=== PATIENT | female | born 1935 | race Caucasian/White ===

== ENCOUNTER → 2016-06-19 | Outpatient (CLI) | payer MEDICARE ==
[~2016-06-19] MED LIST: AMLODIPINE BESYL5 MG PO; ASPIRIN81 M2 PO; B6100 MG PO; METOPROLOL TAR25 MG PO; METOPROLOL TART25 MG PO; QUINAPRIL-HCTZ1 TA1 PO; SIMVASTATIN40 MG PO; [UNRECOGNIZED DRUG - OTHER] PO
--- NOTE | ~2016-06-19 | US37 ---
[facility] A Service of [facility] RADIOLOGY TEXT RESULTS PATIENT: COSTA WANG LOCATION: CNIV : 37 UNIT #: [id number] AGE: [address]: Amy Rosas SEX: F ORDER DR: [id number] [facility] [address] [place], [place] [address] [id number] O MR#: [id number] Acc #: [id number] NAME: COSTA WANG : 1935 SEX: F STUDY DATE/TIME: 06/19/2016 12:07 UNIT: CNIV ROOM: STUDY DESCRIPTION: US Carotid W/Doppler Bilateral Attending Physician: Amy Rosas A.P.R.N. Referring Physician: Amy Rosas A.P.R.N. Ordering Physician: Amy Rosas A.P.R.N. Primary Care Physician: Richie Cloud M.D. MEDICAL IMAGING REPORT This report is preliminary unless electronic signature is present EXAM Bilateral carotid duplex date of examination 06/19/2016 HISTORY Status post left carotid endarterectomy. FINDINGS There is patent flow seen throughout the right common carotid, internal carotid, and external carotid arteries. The right carotid bifurcation has heterogeneous, irregular appearing, and echogenic plaque, that extends into the internal and external carotid arteries. The right common carotid artery peak velocity is 36 cm/sec. The right internal carotid artery peak systolic over end diastolic velocities are: Proximal 90/16 cm/sec, mid 51/16 cm/sec, distal 57/19 cm/sec. The right external carotid artery peak velocity is 72 cm/sec, and vertebral artery 20 cm/sec. The right ICA/CCA ratio is 2.5. There is patent flow seen throughout the left common carotid, internal carotid, and external carotid arteries. There is no significant atherosclerosis noted within the left common carotid, internal or external carotid arteries. The left common carotid artery peak velocity is 119 cm/sec. The left internal carotid artery peak systolic over end diastolic velocities are: Proximal 75/12 cm/sec, mid 123/23 cm/sec, distal 72/20 cm/sec. The left external carotid artery peak velocity is 188 cm/sec, and vertebral artery 76 cm/sec. The left ICA/CCA ratio is 1.0. IMPRESSION 1. There is moderate atherosclerosis of the right carotid artery, and by duplex criteria it is less than 50% stenosis. By ICA/CCA ratio and B-mode imaging, however, it is likely closer to 50-69%. 2. The left carotid artery, status post carotid endarterectomy, is widely patent, with no evidence of recurrent stenosis. [facility] A Service of [facility] RADIOLOGY TEXT RESULTS PATIENT: COSTA WANG LOCATION: [facility] : 37 UNIT #: [id number] AGE: [address]: Amy Rosas SEX: F ORDER DR: 3. Vertebral flow is antegrade bilaterally. Dictated by... Jacques Cardona M.D. THIS IS AN ELECTRONICALLY VERIFIED REPORT Jacques Cardona M.D. at 06/20/2016 8:28 AM Brayden TD: 06/19/2016 15:11 JOB #: [id number] MEDICAL IMAGING REPORT Page 1 of 1 COPY
== END | disposition home or self-care (01) ==
LOC: CNIV 11:37
DX: I65.29 Occlusion and stenosis of unspecified carotid artery (principal); I65.21 Occlusion and stenosis of right carotid artery; Z98.890 Other specified postprocedural states
CPT/HCPCS: 93880